=== PATIENT | male | born 1940 | race Caucasian/White ===

== ENCOUNTER 2017-09-15 05:21 | Inpatient (IN) | payer MEDICARE, OTHER ==
[~2017-09-15] VITALS: Ht 172.7 cm; Wt 75.5 kg
[~2017-09-15 05:21] MED LIST: /ATOR40TA PO; ACYC400T PO; AMOX500C PO; ASPI81TA45 PO; AVOD0.5C PO; CALC-190 PO; CALCIUM+VIT D PO; D200CAP3 PO; DOCU10CA PO; ERYT5OPO OU; FISHOIL XX; FLAXOIL4 PO; GLUC500T PO; LEVO500T3 PO; LISI5TAB PO; MG-PTAB PO; MULTTAB50 PO; OMEP20CA3 PO; PENI50TA PO; PENT30IN INH; PLAQUENIL PO; TACROLIMUS PO; VITA10006 PO; VITAD1000T PO; VORI200T5 PO
[2017-09-15] MEDS ORDERED: DOXY-278 PO (05:43)
[2017-09-15] MEDS ORDERED: IMAT100T PO (05:43)
[2017-09-15] MEDS ORDERED: FOSA70TA PO (05:43)
[2017-09-15] MEDS ORDERED: SING10TA32 PO (05:43)
[2017-09-15] MEDS ORDERED: CETI10CH PO (05:43)
[2017-09-15] MEDS ORDERED: METO37.5 PO (05:43)
[2017-09-15] MEDS ORDERED: BACT800T5 PO (05:43)
[2017-09-15] MEDS ORDERED: DIGO0.12 PO (05:43)
[2017-09-15] MEDS ORDERED: ASPIRIN 81 MG CHEW TABLET PO ONE (05:45)
[2017-09-15 05:51] LABS: BASO % 0.2 % (0.0-1.0); EOS % 0.2 % (0.0-3.0); IMMATURE GRANULOCYTE % 0.5 % (0-0); LYMPH # 1.1 10^3/uL (1.5-4.5); LYMPH % 8.7 % (24.0-44.0); MEAN CORPUSCULAR HEMOGLOBIN 36.1 pg (27.0-33.0); MEAN CORPUSCULAR VOLUME 106.1 fl (80.0-96.0); MONO # 0.6 10^3/uL (0.0-0.8); MONO % 4.6 % (0.0-5.0); NEUTROPHILS # 10.6 10^3/uL (1.8-7.7); NEUTROPHILS % 85.8 % (36.0-66.0); PLATELET COUNT, AUTOMATED 209 10^3/uL (150-450); RED CELL DISTRIBUTION WIDTH 13.7 % (11.5-14.5); WHITE BLOOD COUNT 12.3 10^3/uL (4.0-10.0)
[2017-09-15 06:21] LABS: ALBUMIN 3.2 GM/DL (3.2-5.2); ALBUMIN/GLOBULIN RATIO 1.03 (1.00-1.93); BILIRUBIN,DIRECT 0.1 MG/DL (0.0-0.2); BILIRUBIN,TOTAL 0.4 MG/DL (0.2-1.0); CALCIUM LEVEL 8.4 MG/DL (8.8-10.2); CREATININE FOR GFR 1.3 MG/DL (0.70-1.30); GLOMERULAR FILTRATION RATE 57.3 (>42); POTASSIUM SERUM 4.8 MEQ/L (3.5-5.1); TOTAL PROTEIN 6.3 GM/DL (6.4-8.2)
[2017-09-15] MEDS ORDERED: ISOVUE-370 76% 100ML VIAL (Q9967) As Ordered ONE (07:10)
--- NOTE | 2017-09-15 08:10 | REPUSA ---
CLINICAL HISTORY: Dyspnea, exclude PE. TECHNIQUE: Multiple incremental axial, coronal and oblique images are obtained from the thoracic inle t to the upper abdomen. Intravenous contrast material was administered as per pulmonary embolism prot ocol. COMMENTS: Comparison to prior exam performed on 09/14/2014. Small left pleural effusion. Left lower lobe pulmonary consolidation. Prior CABG. 2.5 cm left hypoechoic cystic nodule/cyst. Mildly increased in size. Complete resolution of the patient noted large pericardial effusion. Minimal bilateral multifocal air trapping/hypoventilatory changes of the lungs. Significant decrease in bilateral ground glass densities of the lungs. Unchanged bilateral chronic subdural minimal interstitial pulmonary thickening. Unchanged paraseptal emphysema. Multiple gallstones are noted. Diffusely thickened gallbladder. Unchanged cardiomegaly. There is excellent opacification of pulmonary arterial system without evidence for pulmonary embolism . Aorta is of normal caliber without evidence for dissection or aneurysm. There is no evidence of hilar or mediastinal lymphadenopathy. Images of the upper abdomen demonstrate no evidence of adrenal mass. The bony structures are free of lytic or blastic lesions. Multilevel degenerative changes are seen in volving the visualized thoracolumbar spine. Scattered calcifications are seen involving the aorta and major branches compatible with atherosclero sis. IMPRESSION: No evidence for pulmonary embolism. Increase in the size of the left lower lobe pulmonary consolidation. Interval appearance of a small left pleural effusion. Mild increase in the size of the left thyroid cyst/nodule. Resolution of pericardial effusion. Decreased bilateral patchy groundglass densities of the lungs. Cholelithiasis. The gallbladder was not fully included on the prior exam. Mild thickening of the wall of the gallbladder. Thank you for your kind referral of this patient.
--- NOTE | 2017-09-15 08:40 | REP ---
Portable chest x-ray: Single view. History: Chest pain. Comparison study: September 16, 2014. Findings: There is elevation of the left hemidiaphragm and blunting of the left lateral pleural angle consistent with small left pleural effusion. The patient is status post prior median sternotomy. Remaining lung sethi are clear. No significant bony abnormality is seen. Impression: Probable left pleural effusion. Prior sternotomy. Signed by Guy Camarillo MD 09/15/2017 03:49 P
[2017-09-15] MEDS ORDERED: AZITHROMYCIN INJ 500 MG, VIAL MATE ADAPTER 1 EACH in D5W 250 ML IV ONE (09:00)
[2017-09-15] MEDS ORDERED: CEFTRIAXONE SOD 1 GM in APPROPRIATE DILUENT 1 EA IV ONE (09:00)
[2017-09-15] MEDS ORDERED: ALEN10TA PO (09:37)
[2017-09-15] MEDS ORDERED: ADV500INH INH (09:37)
[2017-09-15] MEDS ORDERED: ATOR1TAB21 PO (09:37)
[2017-09-15] MEDS ORDERED: CETI10TA PO (09:37)
[2017-09-15] MEDS ORDERED: TACROLIMUS PO (09:37)
[2017-09-15] MEDS ORDERED: METO1TAB87 PO (09:37)
[2017-09-15] MEDS ORDERED: FISH1CAP24 PO (09:42)
[2017-09-15] MEDS ORDERED: FOLI1TAB4 PO (09:42)
[2017-09-15] MEDS ORDERED: HYDR200T3 PO (09:42)
[2017-09-15] MEDS ORDERED: CALCTAB68 PO (09:42)
[2017-09-15 09:47] LABS: DIGOXIN LEVEL 1.1 NG/ML (0.5-2.0)
[2017-09-15] MEDS ORDERED: NS 1,000 ML IV SCH (11:00)
--- NOTE | 2017-09-15 11:41 | PHACANCOPD ---
PHARMACY VANCOMYCIN DOSING Pt Demographics Demographics Patient Age:77 , Weight:68.180 , Gender: male Adjusted Body Weight Date: 09/15/17, Adjusted Body Weight: [68.18] Kg Events Past 24 Hours Events Past 24 Hours: NO: Dialysis, Diuretic Therapy, Change in CrCl, Fever, Elevation in WBC, Pending Diagnostics, Pending Procedures, Other Vancomycin Vancomycin indication: pna Vancomycin Target Ranges: 15-20 mcg/ml Vancomycin Load Y/N: Yes Load Dose Date Time Vancomycin Load Dose: 1.5g Date: 09/15/17 Time: 1300 Vancomycin Dose Date: 09/15/17. Current Vancomycin Dose: [1g iv q24h] Intermittent Dosing?: No Labs Labs Item Value Date Time White Blood Count 12.3 10^3/uL H 09/15/17 0541 Creatinine 1.30 MG/DL 09/15/17 0541 Micro Microbiology 09/15/17 Blood Culture, Received Pending 09/15/17 Blood Culture, Received Pending 09/15/17 Influenza Virus Type A Antigen - Final, Complete 09/15/17 Influenza Virus Type B Antigen - Final, Complete Creatinine Clearance Date:09/15/17. Creatinine Clearance: [47.5ml/min]. Pending Labs blood culture Assessment and Plan Maintaining Current Dose?: Yes Reason for dose change: No Dose Change Pharmacist Note Pharmacist Note Date: 09/15/17. Pharmacist note: Pt is a 77 year old man being treated for pneumonia goal trough 15-20mcg/ml. The patient has been treated with vancomycin at [facility] briefly in 2013. To achieve goal a 1.5g loading dose will start 09/15/17 @12. Maintenance therapy will consist of 1g iv q24 hours starting 09/16 @ 12: 00. We will continue to monitor and adjust dose as needed. GIOVANNI BALTAZAR PHARMACY Sep 15, 2017 11:41
--- NOTE | 2017-09-15 11:42 | PHACANCOPD ---
PHARMACY VANCOMYCIN DOSING Pt Demographics Demographics Patient Age:77 , Weight:68.180 , Gender: male Adjusted Body Weight Date: 09/15/17, Adjusted Body Weight: [68.18] Kg Events Past 24 Hours Events Past 24 Hours: YES: Dialysis, Diuretic Therapy, Change in CrCl, Fever, Elevation in WBC, Pending Diagnostics, Pending Procedures, Other Vancomycin Vancomycin indication: pna Vancomycin Target Ranges: 15-20 mcg/ml Vancomycin Load Y/N: Yes Load Dose Date Time Vancomycin Load Dose: 1.5g Date: 09/15/17 Time: 1300 Vancomycin Dose Date: 09/15/17. Current Vancomycin Dose: [1g iv q24h] Intermittent Dosing?: No Labs Micro Microbiology 09/15/17 Blood Culture, Received Pending 09/15/17 Blood Culture, Received Pending 09/15/17 Influenza Virus Type A Antigen - Final, Complete 09/15/17 Influenza Virus Type B Antigen - Final, Complete Creatinine Clearance Date:09/15/17. Creatinine Clearance: [47.5ml/min]. Pending Labs blood culture Assessment and Plan Maintaining Current Dose?: Yes Reason for dose change: No Dose Change Pharmacist Note Pharmacist Note Date: 09/15/17. Pharmacist note: Pt is a 77 year old man being treated for pneumonia goal trough 15-20mcg/ml. The patient has been treated with vancomycin at [facility] briefly in 2013. To achieve goal a 1.5g loading dose will start 09/15/17 @13. Maintenance therapy will consist of 1g iv q24 hours starting 09/16 @ 13: 00. We will continue to monitor and adjust dose as needed. GIOVANNI BALTAZAR PHARMACY Sep 15, 2017 11:42
[2017-09-15] MEDS: PIPERACILLIN/TAZOBACTAM SOD 3.375 GM in APPROPRIATE DILUENT 1 EA IV SCH ×2 (13:50→18:00)
[2017-09-15] MEDS ORDERED: VANCOMYCIN HCL 500 MG in D5W MINI-BAG PLUS 100 ML IV ONE (14:00)
--- NOTE | 2017-09-15 15:04 | HPEPDOC ---
[facility] Medical History & Physical Date of Admission Sep 15, 2017 History and Physical PRIMARY CARE PROVIDER: Dr. Oziel Mistry ATTENDING: Dr. 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 Patient states he started having shortness of breath and a nonproductive cough starting yesterday which progressively worsened overnight. Patient denies any fevers or chills. No sick contacts. No recent travels. Has not been hospitalized in the last 90 days. Patient does have left-sided chest pain that is double nature and worse with exertion, in nonreproducible. Patient states this pain pleuritic in nature. Pain has resolved at this time. Patient denies orthopnea/PND/lower extremity edema/syncopal episodes. In the ED patient was found to have pneumonia and started on azithromycin and Rocephin. PAST MEDICAL HISTORY: As per HPI PAST SURGICAL HISTORY: Appendectomy, CABG, BM Transplant, Adenoids SOCIAL HISTORY: H/o tobacco abuse quit in 1976. Denies alcohol. Lives with . FAMILY HISTORY: Non contributory ALLERGIES: Please see below. REVIEW OF SYSTEMS: HEENT: Denies sore throat/headache CARDIOVASCULAR: Denies chest pain/palpitations RESPIRATORY: + shortness of breath/cough GASTROINTESTINAL: denies nausea/vomiting GENITOURINARY: Denies dysuria/urinary urgency. MUSCULOSKELETAL: Denies myalgias/arthralgias NEUROLOGICAL: Denies any focal weakness HOME MEDICATIONS: Please see below. PHYSICAL EXAMINATION: Vitals: (see below) General: No acute distress, laying comfortably in bed. HEENT: Moist mucous membranes. Neck: No JVD or lymphadenopathy Cardiac: RRR, No murmurs Pulm: Diminished breath sounds and course crackles left base. No wheezing, rhonchi Abd: NT/ND + BS Ext: No edema or cyanosis LABORATORY DATA: See below. IMAGING: CTA Chest 09/15/17 IMPRESSION: No evidence for pulmonary embolism. Increase in the size of the left lower lobe pulmonary consolidation. Interval appearance of a small left pleural effusion. Mild increase in the size of the left thyroid cyst/nodule. Resolution of pericardial effusion. Decreased bilateral patchy groundglass densities of the lungs. Cholelithiasis. The gallbladder was not fully included on the prior exam. Mild thickening of the wall of the gallbladder. MICROBIOLOGY: Please see below. ASSESSMENT/PLAN: 1. Community acquired pneumonia- given that the patient's immunosuppressed, we will start the patient on broad-spectrum antibiotics with vancomycin and Zosyn, pending cultures. Patient is not hypoxic. Leukocytosis of 23. Afebrile. Blood/ sputum cultures. 2. History of CAD status post bypass 3 continue home meds 3. Pleuritic chest pain- CTA negative for PE. Given the patient's history of pericardial effusion, we will obtain echocardiogram. Trend cardiac enzymes. 4. History ammsi-cadshb-kkmx disease. 5. History of myelodysplastic syndrome on immunosuppressants status post bone marrow transplant 2011 6. Diabetes mellitus- hold metformin. Sliding scale insulin. DVT prophylaxis SCDs I have called and discussed the case with the patient's transplants seen (Dr. Bravo's office), spoke with the PA, who were agreeable to the current antibiotic regimen. These call their office with any questions or concerns and [phone]. Vital Signs Vital Signs Date Time Temp Pulse Resp B/P (MAP) Pulse Ox O2 Delivery O2 Flow Rate FiO2 09/15/17 13:17 80 120/58 (78) 96 09/15/17 11:02 98.9 16 09/15/17 05:22 Room Air Laboratory Data Labs 24H Laboratory Tests 2 09/15/17 05:40: 09/15/17 05:41: Immature Granulocyte % (Auto) 0.5H, White Blood Count 12.3H, Red Blood Count 2.94L, Hemoglobin 10.6L, Hematocrit 31.2L, Mean Corpuscular Volume 106.1H, Mean Corpuscular Hemoglobin 36.1H, Mean Corpuscular Hemoglobin Concent 34.0, Red Cell Distribution Width 13.7, Platelet Count 209, Neutrophils (%) (Auto) 85.8H, Lymphocytes (%) (Auto) 8.7L, Monocytes (%) (Auto) 4.6, Eosinophils (%) (Auto) 0.2, Basophils (%) (Auto) 0.2, Neutrophils # (Auto) 10.6H, Lymphocytes # (Auto) 1.1L, Monocytes # (Auto) 0.6, Eosinophils # (Auto) 0.0, Basophils # (Auto) 0.0, Immature Granulocyte # (Auto) 0.1H, Nucleated Red Blood Cells % (auto) 0.0, Anion Gap 10, Glomerular Filtration Rate 57.3, Calcium Level 8.4L, Aspartate Amino Transf (AST/SGOT) 26, Alanine Aminotransferase (ALT/SGPT) 27, Alkaline Phosphatase 66, Total Bilirubin 0.4, Direct Bilirubin 0.1, Total Creatine Kinase 129, Creatine Kinase MB 1.0, Creatine Kinase MB Relative Index 0.77, Troponin I 0.05, DL-Qaz-I-Type Natriuretic Peptide 4125H, Total Protein 6.3L, Albumin 3.2, Albumin/Globulin Ratio 1.03, Digoxin Level 1.1 09/15/17 07:39: Urine Appearance HAZY, Urine Color YELLOW, Urine pH 5.0, Urine Specific [place] 1.024, Urine Protein 3+H, Urine Glucose (UA) 3+H, Urine Ketones TRACEH, Urine Urobilinogen 0.2, Urine Bilirubin NEGATIVE, Urine Leukocyte Esterase NEGATIVE, Urine Blood NEGATIVE, Urine Nitrite NEGATIVE, Urine WBC (Auto) 2, Urine RBC ( Auto) 3, Urine Hyaline Casts (Auto) 0, Urine Bacteria (Auto) NEGATIVE, Urine Squamous Epithelial Cells 0, Urine Mucus (Auto) SMALL, Urine Sperm (Auto) 09/15/17 08:44: Lactic Acid Level 1.3 CBC/BMP Laboratory Tests 09/15/17 05:41 Red Blood Count 2.94 L, Mean Corpuscular Volume 106.1 H, Mean Corpuscular Hemoglobin 36.1 H, Mean Corpuscular Hemoglobin Concent 34.0, Red Cell Distribution Width 13.7, Neutrophils (%) (Auto) 85.8 H, Lymphocytes (%) (Auto) 8.7 L, Monocytes (%) (Auto) 4.6, Eosinophils (%) (Auto) 0.2, Basophils (%) (Auto ) 0.2, Neutrophils # (Auto) 10.6 H, Lymphocytes # (Auto) 1.1 L, Monocytes # ( Auto) 0.6, Eosinophils # (Auto) 0.0, Basophils # (Auto) 0.0 Microbiology Microbiology 09/15/17 Blood Culture, Received Pending 09/15/17 Blood Culture, Received Pending 09/15/17 Influenza Virus Type A Antigen - Final, Complete 09/15/17 Influenza Virus Type B Antigen - Final, Complete Home Medications Scheduled (mg-Plus Protein 133 mg) 1 Tab Tab, 1 TAB PO TID (Imatinib Mesylate) 100 Mg Tab, 200 MG PO DAILY LUNCHTIME (Digoxin) 125 Mcg Tab, 125 MCG PO DAILY (Fish Oil 500 mg) 1 Cap Cap, 2 CAP PO BID Acyclovir (Acyclovir) 400 Mg Tab, 400 MG PO BID Alendronate Sodium (Alendronate Sodium) 10 Mg Tab, 10 MG PO DAILY Amoxicillin (Amoxicillin) 500 Mg Cap, 2,000 MG PO ASDIRECTED Aspirin (Aspirin EC Lo-Dose) 81 Mg Tab, 81 MG PO QHS Atorvastatin Calcium (Atorvastatin Calcium) 20 Mg Tab, 20 MG PO QHS Calcium/Vitamin D (Calcium 600 + D 600-400 mg-Unit) 1 Tab Tab, 1 TAB PO BID Cetirizine HCl (Cetirizine HCl) 10 Mg Tab, 10 MG PO QHS Cholecalciferol (D2000 Ultra Strength) 2,000 Unit Cap, 6,000 UNIT PO DAILY Docusate Sodium (Colace) 100 Mg Cap, 100 MG PO BID Doxycycline Hyclate (Doxycycline) 100 Mg Cap, 100 MG PO DAILY LUNCHTIME Dutasteride (Avodart) 0.5 Mg Cap, 0.5 MG PO QHS Folic Acid (Folic Acid) 1 Mg Tab, 1 MG PO DAILY Hydroxychloroquine Sulfate (Hydroxychloroquine Sulfat) 200 Mg Tab, 200 MG PO BID Metformin Hydrochloride (Glucophage) 500 Mg Tab, 500 MG PO QHS HOLD DUE TO RECENT USE OF IV CONTRAST Metoprolol Tartrate (Metoprolol Tartrate) 25 Mg Tab, 12.5 MG PO BID Montelukast Sodium (Singulair) 10 Mg Tab, 10 MG PO QPM Omeprazole (Omeprazole) 20 Mg Cap, 20 MG PO DAILY Salmeterol/Fluticasone (Advair Diskus 500-50 Mcg/Dose) 28 Puff/Inhaler Aerp, 1 PUFF INH BID Trimethoprim/Sulfamethoxazole (Bactrim Ds 800-160 mg) 1 Tab Tab, 1 TAB PO 3XW FRIDAY,FRIDAY,FRIDAY Voriconazole (Voriconazole) 200 Mg Tab, 200 MG PO BID [Tacrolimus Oral Susp] ML, 0.8 MG PO BID 0900,2100- PT BRINGING IN MEDICATION Allergies Coded Allergies: No Known Drug Allergy (Verified Allergy, Unknown, 01/03/13) Lidocaine (Verified Adverse Reaction, Severe, CONVULSIONS FROM ALL "CALLIE ", 01/03/13) MOUNA SIMMONS MD Sep 15, 2017 15:04
[2017-09-15 16:00] VITALS: BP 115/56
[2017-09-15] MEDS: VANCOMYCIN HCL 1,000 MG, VIAL MATE ADAPTER 1 EACH in D5W 250 ML IV SCH (16:30)
[2017-09-15] MEDS: VITAMIN D 1,000 INTERNATIONAL UNITS TABLET PO SCH (16:30)
[2017-09-15] MEDS: OMEPRAZOLE 20 MG CAP PO SCH (16:31)
[2017-09-15] MEDS: DIGOXIN 0.125 MG TAB PO SCH (16:31)
[2017-09-15] MEDS: FOLIC ACID 1 MG TAB PO SCH (16:31)
[2017-09-15 20:00] VITALS: BP 110/57
[2017-09-15] MEDS: ADVAIR HFA 230/21MCG INHALER INH SCH (20:52)
[2017-09-15] MEDS ORDERED: VANCOMYCIN HCL 750 MG, VIAL MATE ADAPTER 1 EACH in D5W 250 ML IV SCH (21:00)
[2017-09-15] MEDS ORDERED: ASPIRIN 81 MG ENTERIC TAB PO SCH (21:00)
[2017-09-15] MEDS: ACYCLOVIR 200 MG CAPSULE PO SCH (21:55)
[2017-09-15] MEDS: DOCUSATE SODIUM 100 MG CAP PO SCH (21:56)
[2017-09-15] MEDS: HYDROXYCHLOROQUINE 200 MG TAB PO SCH (21:56)
[2017-09-15] MEDS: VORICONAZOLE 200MG TABLET (VFEND) PO SCH (21:56)
[2017-09-15] MEDS: CETIRIZINE (ZyrTEC) 10 MG TAB PO SCH (21:56)
[2017-09-15] MEDS: MONTELUKAST 10 MG TAB PO SCH (21:56)
[2017-09-15] MEDS: ATORVASTATIN 20 MG TAB PO SCH (21:56)
[2017-09-15] MEDS: DUTASTERIDE 0.5 MG CAP (AVODART) PO SCH (21:56)
[2017-09-15] MEDS: METOPROLOL TART 12.5 MG PER 1/2 TAB PO SCH (21:59)
[2017-09-15] MEDS: TACROLIMUS PO SCH (23:37)
[2017-09-16] MEDS: PIPERACILLIN/TAZOBACTAM SOD 3.375 GM in APPROPRIATE DILUENT 1 EA IV SCH ×5 (02:41→23:49)
[2017-09-16 04:00] VITALS: BP 109/53
[2017-09-16 05:47] LABS: BASO % 0.2 % (0.0-1.0); EOS # 0.1 10^3/uL (0.0-0.50); EOS % 0.5 % (0.0-3.0); IMMATURE GRANULOCYTE % 0.7 % (0-0); LYMPH # 1.3 10^3/uL (1.5-4.5); LYMPH % 12.6 % (24.0-44.0); MEAN CORPUSCULAR HEMOGLOBIN 35.4 pg (27.0-33.0); MEAN CORPUSCULAR HGB CONC 34.2 g/dl (32.0-36.5); MEAN CORPUSCULAR VOLUME 103.6 fl (80.0-96.0); MONO # 0.7 10^3/uL (0.0-0.8); NEUTROPHILS # 8.4 10^3/uL (1.8-7.7); PLATELET COUNT, AUTOMATED 181 10^3/uL (150-450); RED CELL DISTRIBUTION WIDTH 13.9 % (11.5-14.5); WHITE BLOOD COUNT 10.6 10^3/uL (4.0-10.0)
[2017-09-16 05:57] LABS: ANION GAP 8 MEQ/L (8-16); BLOOD UREA NITROGEN 39 MG/DL (7-18); CALCIUM LEVEL 8.2 MG/DL (8.8-10.2); CARBON DIOXIDE LEVEL 24 MEQ/L (21-32); CHLORIDE LEVEL 104 MEQ/L (98-107); GLOMERULAR FILTRATION RATE > 60.0 (>42); GLUCOSE, FASTING 105 MG/DL (83-110); MAGNESIUM LEVEL 1.6 MG/DL (1.8-2.4); POTASSIUM SERUM 4.1 MEQ/L (3.5-5.1); SODIUM LEVEL 136 MEQ/L (136-145)
[2017-09-16 07:30] VITALS: BP 103/62
[2017-09-16] MEDS ORDERED: MAG SULF 1GM/100ML (MAG RUN) 1 GM in APPROPRIATE DILUENT 1 EA IV ONE (07:45)
--- NOTE | 2017-09-16 08:33 | ECGEPIP ---
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
--- NOTE | 2017-09-16 08:35 | ECGEPIP ---
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
[2017-09-16] MEDS: ACYCLOVIR 200 MG CAPSULE PO SCH ×2 (08:48→21:43)
[2017-09-16] MEDS: METOPROLOL TART 12.5 MG PER 1/2 TAB PO SCH ×2 (08:48→21:46)
[2017-09-16] MEDS: VITAMIN D 1,000 INTERNATIONAL UNITS TABLET PO SCH (08:48)
[2017-09-16] MEDS: VORICONAZOLE 200MG TABLET (VFEND) PO SCH ×2 (08:49→21:46)
[2017-09-16] MEDS: DIGOXIN 0.125 MG TAB PO SCH (08:49)
[2017-09-16] MEDS: FOLIC ACID 1 MG TAB PO SCH (08:49)
[2017-09-16] MEDS: DOCUSATE SODIUM 100 MG CAP PO SCH ×2 (08:50→21:43)
[2017-09-16] MEDS: TACROLIMUS PO SCH ×2 (08:50→21:48)
[2017-09-16] MEDS: OMEPRAZOLE 20 MG CAP PO SCH (08:50)
[2017-09-16] MEDS: HYDROXYCHLOROQUINE 200 MG TAB PO SCH ×2 (08:52→21:43)
[2017-09-16] MEDS: ADVAIR HFA 230/21MCG INHALER INH SCH ×2 (08:57→20:32)
--- NOTE | 2017-09-16 09:52 | ECHO ---
DATE OF PROCEDURE: 09/15/2017 AGE: 77 GENDER: Male REFERRING PHYSICIAN: Dr. Simmons. HEIGHT: 68 inches. WEIGHT: 149 pounds. BODY SURFACE AREA: 1.81 m2. INPATIENT: PCU Room 3224. INDICATION: Chest pain (other). MEASUREMENTS: 2D MEASUREMENTS: RV - 3.6 cm LV- 4.9 cm Septum - 1.3 cm Posterior wall - 1.3 cm Aortic root - 3.8 cm LA - 4.5 cm LVEF - 70% DOPPLER MEASUREMENTS: AV - 1.1 m/s LVOT - 0.77 m/s LVOT diameter - 2.1 cm MV-E: 75 A: 77 EA ratio 1.0 Early mitral deacceleration time - 236 ms E-prime - 5.4 A-prime - 8.6 E/E prime ratio - 14 PV - 0.8 m/s Pulmonary artery acceleration time - 99 ms RVSP - 34 mmHg IVC - 1.8 cm COMMENT: Normal sinus rhythm without interventricular conduction disturbance. Mildly dilated left atrium but normal left ventricular size. Right heart chamber sizes were also normal. LV wall thickness was mildly increased symmetrically. On real-time imaging from the parasternal and apical projections, wall motion was symmetrical and hyperkinetic. Slightly thickened mitral annulus but normal leaflet thickness and excursion with no posterior systolic buckling. Three equal size aortic cusps with slight asymmetrical thickening of the noncoronary cusp, but adequate cusp separation. Aortic root was slightly dilated. No apparent intracardiac mass or pericardial effusion. Color flow Doppler study taken from the parasternal and apical projection showed mild tricuspid and no apparent mitral or aortic insufficiency. Guided continuous wave Doppler of his aortic valve showed a normal peak systolic velocity against LV outflow tract obstruction. Pulsed and continuous wave Doppler of his LV inflow tract taken from the apical four-chamber projection showed normal diastolic filling velocities against mitral stenosis. The filling pattern was normal. However, his early mitral deceleration time was prolonged and tissue Doppler of his mitral annulus also suggested a degree of impaired LV diastolic function. Current estimated mean left atrial pressure was upper limits of normal. Pulsed and continuous wave Doppler of his pulmonary trunk showed a normal peak systolic velocity against RV outflow tract obstruction. His pulmonary artery acceleration time was abbreviated consistent with a mildly elevated pulmonary vascular resistance. Guided continuous wave Doppler of his tricuspid valve allowed our estimation of his right ventricular systolic pressure (upper limits of normal to mildly increased). His inferior vena cava was of normal size with normal respiratory collapse against an elevated central venous pressure. CONCLUSIONS: Mild concentric left ventricle hypertrophy with hyperkinetic wall motion. Mildly dilated left atrium with Doppler evidence of impaired LV diastolic relaxation but current mean left atrial pressure only slightly elevated. Normal right heart chamber sizes and motion with borderline elevated estimated pulmonary arterial pressure. Normal IVC size and collapse against an elevated central venous pressure. Subtle degenerative changes of the mitral and aortic valvular apparatus with no functional valvular abnormality.
[2017-09-16 12:30] VITALS: BP 123/65
[2017-09-16] MEDS: VANCOMYCIN HCL 1,000 MG, VIAL MATE ADAPTER 1 EACH in D5W 250 ML IV SCH (12:47)
[2017-09-16 16:00] VITALS: BP 113/50
[2017-09-16] MEDS ORDERED: IPRATROPIUM 0.5MG/ALBUTEROL 2.5MG INH SOL UD 3ML (DUONEB)(J7620) NEB PRN (16:15)
--- NOTE | 2017-09-16 16:20 | IPNPDOC ---
Text Note Date of Service The patient was seen on 09/16/17. NOTE Subjective: Patient is a 77 year old male with a PMHx of MDS s/p BM transplant ( 2011), s/p GVH disease (2013), CAD s/p CABG x3 (2013), DM2, Pericardial effusion (2013), who presented to the ER with cough and SOB. Was found to have a pneumonia and admitted to the hospitalist service. Patient was seen and examined at the bedside. He notes that his breathing is doing better. He notes a mild cough. Reports chest pain when he coughs. Denies N &V and diarrhea. Objective: Vitals (See below) General: Lying in bed, no acute distress, comfortable, AAOx3 HEENT: NC, AT CVS: RRR, +S1S2 Lungs: Fair air entry b/l, -w/r/r Abdomen: Soft, ND, NT Extremities: - Edema, - Calf tenderness Assessment and plan: Dyspnea - likely 2/2 Community acquired pneumonia - Presented with SOB and productive cough - Immunosuppression; re: chemotherapy - Blood cultures 09/15: Strep pneumoniae; REPEAT Blood cultures 09/16: Pending - WBC count improving; No lactic acidosis - CTA chest 09/15: increase in the size of the left lower lobe pulmonary consolidation - c/w Vancomycin and Zosyn (Day #2) Chest pain - likely 2/2 pleuritic nature - CTA chest 09/15: negative for PE - Troponin x3 negative MDS s/p BM transplant (2011) - s/p GVH disease (2013) CAD s/p CABG x3 (2013) - c/w ASA, Atorvastatin DLP - c/w Atorvastatin DM2 - c/w ISS HTN - c/w Metoprolol Pericardial effusion (2013) - resolution of effusion on CTA 09/15/2017 COPD - no evidence of exacerbation - c/w Singulair and Advair - Will start DuoNeb PRN BPH - c/w Dutasteride GERD - c/w Omeprazole DVT prophylaxis - Will start Heparin VS,Fishbone, I+O VS, Fishbone, I+O Laboratory Tests 09/16/17 05:20 Red Blood Count 2.74 L, Mean Corpuscular Volume 103.6 H, Mean Corpuscular Hemoglobin 35.4 H, Mean Corpuscular Hemoglobin Concent 34.2, Red Cell Distribution Width 13.9, Neutrophils (%) (Auto) 79.0 H, Lymphocytes (%) (Auto) 12.6 L, Monocytes (%) (Auto) 7.0 H, Eosinophils (%) (Auto) 0.5, Basophils (%) ( Auto) 0.2, Neutrophils # (Auto) 8.4 H, Lymphocytes # (Auto) 1.3 L, Monocytes # ( Auto) 0.7, Eosinophils # (Auto) 0.1, Basophils # (Auto) 0.0, Calcium Level 8.2 L Vital Signs Date Time Temp Pulse Resp B/P (MAP) Pulse Ox O2 Delivery O2 Flow Rate FiO2 09/16/17 12:30 99.9 82 16 123/65 (84) 95 Room Air I&O- Last 24 Hours up to 6 AM 09/17/17 06:00 Intake Total 760 ml Output Total 150 ml Balance 610 ml VICENTE LOCK MD Sep 16, 2017 16:20
[2017-09-16] MEDS: HEPARIN SOD (PORCINE) 5000 UNITS/ML VIAL SQ SCH ×2 (17:57→21:42)
[2017-09-16 20:00] VITALS: BP 127/59
[2017-09-16] MEDS ORDERED: ASPIRIN 81 MG ENTERIC TAB PO SCH (21:00)
[2017-09-16] MEDS: MONTELUKAST 10 MG TAB PO SCH (21:43)
[2017-09-16] MEDS: ATORVASTATIN 20 MG TAB PO SCH (21:43)
[2017-09-16] MEDS: DUTASTERIDE 0.5 MG CAP (AVODART) PO SCH (21:43)
[2017-09-16] MEDS: CETIRIZINE (ZyrTEC) 10 MG TAB PO SCH (21:43)
[2017-09-16 23:59] VITALS: BP 138/67
[2017-09-17 04:00] VITALS: BP 139/68
[2017-09-17] MEDS: PIPERACILLIN/TAZOBACTAM SOD 3.375 GM in APPROPRIATE DILUENT 1 EA IV SCH (05:12)
[2017-09-17] MEDS: HEPARIN SOD (PORCINE) 5000 UNITS/ML VIAL SQ SCH (05:12)
[2017-09-17 06:00] LABS: BASO % 0.2 % (0.0-1.0); EOS # 0.1 10^3/uL (0.0-0.50); EOS % 1.2 % (0.0-3.0); LYMPH # 0.9 10^3/uL (1.5-4.5); MEAN CORPUSCULAR HEMOGLOBIN 35.3 pg (27.0-33.0); MEAN CORPUSCULAR HGB CONC 34.9 g/dl (32.0-36.5); MEAN CORPUSCULAR VOLUME 101.2 fl (80.0-96.0); MONO # 0.8 10^3/uL (0.0-0.8); NEUTROPHILS # 6.5 10^3/uL (1.8-7.7); NEUTROPHILS % 77.6 % (36.0-66.0); PLATELET COUNT, AUTOMATED 180 10^3/uL (150-450); RED CELL DISTRIBUTION WIDTH 13.9 % (11.5-14.5); WHITE BLOOD COUNT 8.3 10^3/uL (4.0-10.0)
[2017-09-17 06:23] LABS: ANION GAP 9 MEQ/L (8-16); BLOOD UREA NITROGEN 34 MG/DL (7-18); CALCIUM LEVEL 8.1 MG/DL (8.8-10.2); CARBON DIOXIDE LEVEL 23 MEQ/L (21-32); CHLORIDE LEVEL 105 MEQ/L (98-107); CREATININE FOR GFR 1.23 MG/DL (0.70-1.30); GLOMERULAR FILTRATION RATE > 60.0 (>42); GLUCOSE, FASTING 178 MG/DL (83-110); MAGNESIUM LEVEL 2.4 MG/DL (1.8-2.4); POTASSIUM SERUM 3.9 MEQ/L (3.5-5.1); SODIUM LEVEL 137 MEQ/L (136-145)
[2017-09-17] MEDS: ADVAIR HFA 230/21MCG INHALER INH SCH (07:19)
[2017-09-17 08:00] VITALS: BP 135/70
[2017-09-17 08:53] VITALS: BP 135/70
[2017-09-17] MEDS: DOCUSATE SODIUM 100 MG CAP PO SCH (08:53)
[2017-09-17] MEDS: ACYCLOVIR 200 MG CAPSULE PO SCH (08:53)
[2017-09-17] MEDS: OMEPRAZOLE 20 MG CAP PO SCH (08:53)
[2017-09-17] MEDS: FOLIC ACID 1 MG TAB PO SCH (08:53)
[2017-09-17] MEDS: VORICONAZOLE 200MG TABLET (VFEND) PO SCH (08:53)
[2017-09-17] MEDS: VITAMIN D 1,000 INTERNATIONAL UNITS TABLET PO SCH (08:53)
[2017-09-17] MEDS: METOPROLOL TART 12.5 MG PER 1/2 TAB PO SCH (08:53)
[2017-09-17] MEDS: DIGOXIN 0.125 MG TAB PO SCH (08:54)
[2017-09-17] MEDS: HYDROXYCHLOROQUINE 200 MG TAB PO SCH (08:54)
[2017-09-17] MEDS: TACROLIMUS PO SCH (08:54)
[2017-09-17] MEDS ORDERED: CEFDINIR 300 MG CAP (OMNICEF) PO SCH (09:00)
[2017-09-17] MEDS ORDERED: CEFD300CAP PO (10:29)
--- NOTE | 2017-09-17 20:10 | DSES ---
DATE OF ADMISSION: 09/16/2017 DATE OF DISCHARGE: 09/17/2017 ATTENDING PHYSICIAN: Dr. Ravin Lacy, Dr. Gene Simmons PRIMARY CARE PROVIDER: Dr. Oziel Mistry REFERRING PHYSICIAN: None. CONSULTING PHYSICIAN: None. CONDITION ON DISCHARGE: Stable. FINAL DIAGNOSIS: Dyspnea, likely secondary to community-acquired pneumonia with positive blood cultures. PROCEDURES: None. 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 HOSPITAL COURSE: 1. Dyspnea, likely secondary to community-acquired pneumonia. He presented with shortness of breath and productive cough. He has immunosuppression because of chemotherapy. Blood cultures on 09/15/2017 were positive for Streptococcus pneumoniae. Repeat blood cultures on 09/16/2017 have been negative after 24 hours. The patient's white blood cell count has been improving, along with lactic acidosis. CT of the chest on 09/15/2017 revealed increasing size of the left lower pulmonary consolidation. He has been put on vancomycin and Zosyn. Today is day number three. He has been switched over to cefdinir based on susceptibilities of his blood cultures. 2. Chest pain, likely secondary to pleuritic nature. CT chest done 09/15/2017 was negative for pulmonary embolism (PE). Troponin times three has been negative. 3. 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 4. Coronary artery disease, status post coronary artery bypass graft (CABG) times three in 2013. Continue with aspirin and atorvastatin. 5. Dyslipidemia. Continue with atorvastatin. 6. Diabetes mellitus, type 2. Continue with insulin sliding scale. 7. Hypertension. Continue with metoprolol. 8. Pericardial effusion in 2013. Resolution of effusion on CT angiogram done during this hospitalization. 9. Chronic obstructive pulmonary disease (COPD). No evidence of exacerbation. Continue with Singulair, Advair, and he has been continued with DuoNeb as needed while inpatient. 10. Benign prostatic hypertrophy (BPH). Continue with dutasteride. 11. Gastroesophageal reflux disease (GERD). Continue with omeprazole. 12. Deep vein thrombosis (DVT) prophylaxis. Continue with heparin. DISCHARGE MEDICATIONS: The patient is being discharged home with the following medication list: - cefdinir 300 mg by mouth twice a day for the remainder of the antibiotic course - acyclovir 400 mg by mouth twice a day - alendronate 10 mg by mouth daily - aspirin 81 mg by mouth at bedtime - atorvastatin 20 mg by mouth at bedtime - calcium with vitamin D one tablet by mouth twice a day - cetirizine 10 mg by mouth at bedtime - colecalciferol 6000 units by mouth daily - digoxin 125 mcg by mouth daily - docusate sodium 100 mg by mouth twice a day - doxycycline 100 mg by mouth daily - dutasteride 0.5 mg by mouth at bedtime - fish oil two capsules by mouth twice a day - folic acid 1 mg by mouth daily - hydroxychloroquine 200 mg by mouth twice a day - Imatinib 200 mg by mouth daily - metformin 500 mg by mouth at bedtime - metoprolol tartrate 12.5 mg by mouth twice a day - magnesium plus protein one tablet by mouth three times a day - montelukast 10 mg by mouth every evening - omeprazole 20 mg by mouth daily - Advair Diskus 500/50 mcg one puff inhaled twice a day - Bactrim one tablet by mouth three times a week - cortisol 200 mg by mouth twice a day - 0.8 mg by mouth twice a day Stopped medications include amoxicillin 2000 mg by mouth as directed. DISCHARGE INSTRUCTIONS: The patient has been advised to followup with his primary care provider, Dr. Oziel Mistry, as well as his bone marrow transplant physician within the next seven days. He has been advised to remain compliant with treatment plan and medications and return to the emergency room if he experiences any problems. TIME SPENT ON DISCHARGE: Greater than 35 minutes.
== END 2017-09-17 12:50 | disposition home or self-care (01) | DRG 194 ==
LOC: M ED 05:21 → M ED INP 12:52 → M PCU 15:50 → OBSVTOIN 09-16 10:23
PROVIDERS: ADMIT Internal Medicine; ATTEND Internal Medicine
DX: J18.9 Pneumonia, unspecified organism (principal); D84.9 Immunodeficiency, unspecified; Z94.81 Bone marrow transplant status; I25.10 Atherosclerotic heart disease of native coronary artery without angina pectoris; K21.9 Gastro-esophageal reflux disease without esophagitis; J44.9 Chronic obstructive pulmonary disease, unspecified; N40.0 Benign prostatic hyperplasia without lower urinary tract symptoms; E11.9 Type 2 diabetes mellitus without complications; I10 Essential (primary) hypertension; E78.5 Hyperlipidemia, unspecified; Z79.84 Long term (current) use of oral hypoglycemic drugs; Z79.899 Other long term (current) drug therapy; Z95.5 Presence of coronary angioplasty implant and graft; Z87.891 Personal history of nicotine dependence; Z88.8 Allergy status to other drugs, medicaments and biological substances; Z92.21 Personal history of antineoplastic chemotherapy; Z79.82 Long term (current) use of aspirin

== ENCOUNTER → 2017-12-24 | Outpatient (CLI) | payer MEDICARE, OTHER ==
[~2017-12-24] MED LIST changes: -/ATOR40TA PO; -ACYC400T PO; -AMOX500C PO; -ASPI81TA45 PO; -AVOD0.5C PO; -CALC-190 PO; -CALCIUM+VIT D PO; -D200CAP3 PO; -DOCU10CA PO; -ERYT5OPO OU; -FISHOIL XX; -FLAXOIL4 PO; -GLUC500T PO; +ISOVUE-370 76% 100ML VIAL (Q9967) As Ordered; -LEVO500T3 PO; -LISI5TAB PO; -MG-PTAB PO; -MULTTAB50 PO; -OMEP20CA3 PO; -PENI50TA PO; -PENT30IN INH; -PLAQUENIL PO; -TACROLIMUS PO; -VITA10006 PO; -VITAD1000T PO; -VORI200T5 PO
[2017-12-24 13:22] LABS: CREATININE FOR GFR 1.14 MG/DL (0.70-1.30); GLOMERULAR FILTRATION RATE > 60.0 (>42)
[2017-12-24 13:22] LABS: BLOOD UREA NITROGEN 32 MG/DL (7-18)
== END ==
LOC: M RAD 12:51
DX: E04.1 Nontoxic single thyroid nodule (principal)
CPT/HCPCS: Q9967

== ENCOUNTER → 2017-12-26 | Outpatient (REF) | payer MEDICARE, OTHER | LOC: M LAB REF 15:48 | DX: C44.222 Squamous cell carcinoma of skin of right ear and external auricular canal (principal) | CPT/HCPCS: 88305 ==

== ENCOUNTER 2018-01-12 08:02 | Day surgery (SDC) | payer MEDICARE, OTHER ==
[2018-01-12] MEDS: LR 1,000 ML IV (08:45)
[2018-01-12 08:55] LABS: BEDSIDE GLUCOSE 164 MG/DL (83-110)
[2018-01-12] MEDS: LIDOCAINE W/EPINEPHRINE 1% 20ML VIAL As Ordered (09:17)
[2018-01-12] MEDS: BUPIVACAINE/EPIN 0.5% 30 ML VIAL As Ordered (09:58)
[2018-01-12] MEDS: BUPIVACAINE HCL 0.25% 30 ML VIAL As Ordered ×2 (11:17→12:40)
[2018-01-12] MEDS ORDERED: fentaNYL 250 MCG/5 ML INJECTION (J3010) As Ordered (12:25)
[2018-01-12] MEDS ORDERED: ONDANSETRON 4MG/2ML VIAL (J2405) As Ordered (12:25)
[2018-01-12] MEDS ORDERED: MIDAZOLAM INJ 2 MG/2 ML VIAL (J2250) As Ordered (12:29)
[2018-01-12] MEDS: BACITRACIN OINT 30GM As Ordered (12:40)
[2018-01-12] MEDS ORDERED: PERCOCET 5MG/325MG TAB PO (13:15)
[2018-01-12] MEDS ORDERED: ONDANSETRON 4MG/2ML VIAL (J2405) IV (13:15)
[2018-01-12] MEDS ORDERED: fentaNYL 100 MCG/2 ML INJECTION (J3010) IV (13:15)
[2018-01-12] MEDS ORDERED: LR 1,000 ML IV (13:15)
== END 2018-01-12 13:50 | disposition home or self-care (01) ==
LOC: M SDC 08:02
DX: C44.42 Squamous cell carcinoma of skin of scalp and neck (principal); C44.222 Squamous cell carcinoma of skin of right ear and external auricular canal; I25.2 Old myocardial infarction; I25.10 Atherosclerotic heart disease of native coronary artery without angina pectoris; E11.9 Type 2 diabetes mellitus without complications; K21.9 Gastro-esophageal reflux disease without esophagitis; C92.00 Acute myeloblastic leukemia, not having achieved remission; E78.5 Hyperlipidemia, unspecified; Z92.21 Personal history of antineoplastic chemotherapy; D46.9 Myelodysplastic syndrome, unspecified; Z87.891 Personal history of nicotine dependence; Z79.51 Long term (current) use of inhaled steroids; Z79.899 Other long term (current) drug therapy; Z79.82 Long term (current) use of aspirin
CPT/HCPCS: 11623

== ENCOUNTER 2018-03-22 09:31 | Inpatient (IN) | payer MEDICARE, OTHER ==
[2018-03-22 10:43] LABS: BASO % 0.5 % (0.0-1.0); EOS # 0.1 10^3/uL (0.0-0.50); EOS % 1.4 % (0.0-3.0); HEMATOCRIT 30.3 % (42.0-52.0); HEMOGLOBIN 10.1 g/dl (13.5-17.5); IMMATURE GRANULOCYTE % 0.6 % (0-3.0); LYMPH # 1.6 10^3/uL (1.5-4.5); LYMPH % 23.9 % (24.0-44.0); MEAN CORPUSCULAR HEMOGLOBIN 34.4 pg (27.0-33.0); MEAN CORPUSCULAR HGB CONC 33.3 g/dl (32.0-36.5); MEAN CORPUSCULAR VOLUME 103.1 fl (80.0-96.0); MONO # 0.7 10^3/uL (0.0-0.8); MONO % 10.8 % (0.0-5.0); NEUTROPHILS # 4.1 10^3/uL (1.8-7.7); NEUTROPHILS % 62.8 % (36.0-66.0); PLATELET COUNT, AUTOMATED 196 10^3/uL (150-450); RED BLOOD COUNT 2.94 10^6/uL (4.30-6.10); RED CELL DISTRIBUTION WIDTH 13.3 % (11.5-14.5); WHITE BLOOD COUNT 6.6 10^3/uL (4.0-10.0)
[2018-03-22 10:45] LABS: VENOUS BASE EXCESS -0.6 (-2.0-2.0); VENOUS HCO3 23.9 MEQ/L (23.0-27.0); VENOUS O2 SATURATION 94.7 % (60.0-80.0); VENOUS PARTIAL PRESSURE CO2 38.8 mmHg (38.0-50.0); VENOUS PARTIAL PRESSURE O2 73.2 mmHg (30.0-50.0); VENOUS PH 7.407 UNITS (7.330-7.430); VENOUS STANDARD HCO3 23.9 MEQ/L; VENOUS TOTAL CO2 25.1 MEQ/L (24.0-28.0)
[2018-03-22 10:58] LABS: AMMONIA 14 uMOL/L (<32)
[2018-03-22 11:02] LABS: LACTIC ACID SEPSIS PROTOCOL 1.5 MMOL/L (0.4-2.0)
[2018-03-22 11:04] LABS: ACETAMINOPHEN LEVEL < 2.0 UG/ML (10.0-30.0); ALBUMIN 3.1 GM/DL (3.2-5.2); ALBUMIN/GLOBULIN RATIO 1.15 (1.00-1.93); ALKALINE PHOSPHATASE 69 U/L (45-117); ALT/SGPT 38 U/L (12-78); ANION GAP 8 MEQ/L (8-16); AST/SGOT 36 U/L (7-37); BILIRUBIN,DIRECT 0.1 MG/DL (0.0-0.2); BILIRUBIN,TOTAL 0.5 MG/DL (0.2-1.0); BLOOD UREA NITROGEN 25 MG/DL (7-18); CALCIUM LEVEL 8.3 MG/DL (8.8-10.2); CARBON DIOXIDE LEVEL 25 MEQ/L (21-32); CHLORIDE LEVEL 107 MEQ/L (98-107); CPK CREATINE PHOSPHOKINASE 204 U/L (39-308); CREATININE FOR GFR 1.07 MG/DL (0.70-1.30); ETHYL ALCOHOL (ETHANOL) < 0.003 % (0.000-0.010); GLOMERULAR FILTRATION RATE > 60.0 (>42); GLUCOSE, FASTING 155 MG/DL (70-100); POTASSIUM SERUM 4.9 MEQ/L (3.5-5.1); SALICYLATE LEVEL < 1.7 MG/DL (5.0-30.0); SODIUM LEVEL 140 MEQ/L (136-145); TOTAL PROTEIN 5.8 GM/DL (6.4-8.2); TROPONIN I 0.08 NG/ML (< 0.10)
[2018-03-22 11:09] LABS: CK-MB VALUE MASS 2.9 NG/ML (<3.6); MB/CK RELATIVE INDEX 1.42 (< OR =4)
[2018-03-22 11:51] LABS: OSMOLALITY SERUM 297 MOSM/KG (280-301)
[2018-03-22 12:14] LABS: KETONE, URINE AUTO RFX NEGATIVE (NEGATIVE); LEUKOCYTE ESTERASE UR AUTO RFX NEGATIVE (NEGATIVE); MUCUS, URINE RFX SMALL (NEGATIVE); NITRITE, URINE AUTO RFX NEGATIVE (NEGATIVE); RBC, URINE AUTO RFX 2 /HPF (0-3); SPECIFIC GRAVITY UR AUTO RFX 1.022 (1.002-1.035); SQUAM EPITHELIAL CELL UR AURFX 0 /HPF (0-6); WBC, URINE AUTO RFX 1 /HPF (0-3)
[2018-03-22 12:17] LABS: AMPHETAMINES LEVEL URINE NEGATIVE (NEGATIVE); BARBITURATES URINE NEGATIVE (NEGATIVE); BENZODIAZEPINES URINE NEGATIVE (NEGATIVE); CANNABINOIDS URINE NEGATIVE (NEGATIVE); COCAINE METABOLITE URINE NEGATIVE (NEGATIVE); METHADONE URINE NEGATIVE (NEGATIVE); OPIATES URINE NEGATIVE (NEGATIVE); PHENCYCLIDINE URINE NEGATIVE (NEGATIVE)
[2018-03-22] MEDS: MECLIZINE 25 MG TABLET PO (14:01)
[2018-03-22] MEDS ORDERED: BISACODYL 5 MG TAB PO (15:15)
[2018-03-22] MEDS ORDERED: GLUCOSE 4 GM CHEW TABLET PO (15:15)
[2018-03-22] MEDS ORDERED: BISACODYL 10 MG SUPP PR (15:15)
[2018-03-22] MEDS ORDERED: DEXTROSE 50% 50 ML SYRINGE IV (15:15)
[2018-03-22] MEDS ORDERED: GLUCAGON FOR INJ 1 MG VIAL (J1610) SC (15:15)
[2018-03-22] MEDS ORDERED: ONDANSETRON 4MG/2ML VIAL (J2405) IV (15:15)
[2018-03-22] MEDS ORDERED: POSACONAZOLE 100 MG PO (16:00)
[2018-03-22 16:19] LABS: DIGOXIN LEVEL 3.8 NG/ML (0.5-2.0)
[2018-03-22] MEDS ORDERED: DIGOXIN IMMUNE FAB (OVINE) 40MG VIAL (J1162) IV (16:45)
[2018-03-22] MEDS: DIGOXIN IMMUNE FAB (OVINE) 40MG VIAL (J1162) IV (18:05)
[2018-03-22 19:25] LABS: BEDSIDE GLUCOSE 147 MG/DL (83-110)
[2018-03-22] MEDS: FOLIC ACID 1 MG TAB PO (19:29)
[2018-03-22] MEDS: MONTELUKAST 10 MG TAB PO (19:29)
[2018-03-22] MEDS: HumaLOG INSULIN (NovoLOG) PER UNIT SC (19:30)
[2018-03-22] MEDS: LABETALOL 100 MG TAB PO (20:41)
[2018-03-22] MEDS: HYDROXYCHLOROQUINE 200 MG TAB PO (20:41)
[2018-03-22] MEDS: ATORVASTATIN 20 MG TAB PO (20:41)
[2018-03-22] MEDS: DUTASTERIDE 0.5 MG CAP (AVODART) PO (20:41)
[2018-03-22] MEDS: ASPIRIN 81 MG ENTERIC TAB PO (20:41)
[2018-03-22] MEDS: ACYCLOVIR 200 MG CAPSULE PO (20:41)
[2018-03-22] MEDS ORDERED: SLF 3 ML SYR IV (20:45)
[2018-03-22] MEDS: ADVAIR HFA 230/21MCG INHALER INH (21:00)
[2018-03-22] MEDS: SLF 3 ML SYR IV (22:00)
[2018-03-23] MEDS: SLF 3 ML SYR IV ×3 (06:00→21:27)
[2018-03-23 07:02] LABS: DIGOXIN LEVEL 6.7 NG/ML (0.5-2.0)
[2018-03-23 07:18] LABS: BASO % 0.3 % (0.0-1.0); EOS # 0.1 10^3/uL (0.0-0.50); EOS % 1.9 % (0.0-3.0); HEMATOCRIT 28.3 % (42.0-52.0); HEMOGLOBIN 9.7 g/dl (13.5-17.5); IMMATURE GRANULOCYTE % 0.6 % (0-3.0); LYMPH # 1.6 10^3/uL (1.5-4.5); LYMPH % 25.4 % (24.0-44.0); MEAN CORPUSCULAR HGB CONC 34.3 g/dl (32.0-36.5); MEAN CORPUSCULAR VOLUME 102.2 fl (80.0-96.0); MONO # 0.7 10^3/uL (0.0-0.8); MONO % 10.3 % (0.0-5.0); NEUTROPHILS # 3.9 10^3/uL (1.8-7.7); NEUTROPHILS % 61.5 % (36.0-66.0); PLATELET COUNT, AUTOMATED 186 10^3/uL (150-450); RED BLOOD COUNT 2.77 10^6/uL (4.30-6.10); RED CELL DISTRIBUTION WIDTH 13.2 % (11.5-14.5); WHITE BLOOD COUNT 6.3 10^3/uL (4.0-10.0)
[2018-03-23 07:26] LABS: ALBUMIN 2.9 GM/DL (3.2-5.2); ALBUMIN/GLOBULIN RATIO 1.07 (1.00-1.93); ALKALINE PHOSPHATASE 70 U/L (45-117); ALT/SGPT 41 U/L (12-78); ANION GAP 9 MEQ/L (8-16); AST/SGOT 32 U/L (7-37); BILIRUBIN,TOTAL 0.6 MG/DL (0.2-1.0); BLOOD UREA NITROGEN 22 MG/DL (7-18); CALCIUM LEVEL 8.2 MG/DL (8.8-10.2); CARBON DIOXIDE LEVEL 24 MEQ/L (21-32); CHLORIDE LEVEL 107 MEQ/L (98-107); GLOMERULAR FILTRATION RATE > 60.0 (>42); GLUCOSE, FASTING 137 MG/DL (70-100); MAGNESIUM LEVEL 1.6 MG/DL (1.8-2.4); POTASSIUM SERUM 4.5 MEQ/L (3.5-5.1); SODIUM LEVEL 140 MEQ/L (136-145); TOTAL PROTEIN 5.6 GM/DL (6.4-8.2)
[2018-03-23] MEDS: HumaLOG INSULIN (NovoLOG) PER UNIT SC ×3 (07:30→17:42)
[2018-03-23] MEDS: TIOTROPIUM INHALER/CAPSULE (SPIRIVA) INH (08:00)
[2018-03-23] MEDS: OMEPRAZOLE 20 MG CAP PO (09:00)
[2018-03-23] MEDS: ACYCLOVIR 200 MG CAPSULE PO ×2 (09:00→21:25)
[2018-03-23] MEDS ORDERED: TACROLIMUS 1 MG/ML PO ×2 (09:00→14:18)
[2018-03-23] MEDS: HYDROXYCHLOROQUINE 200 MG TAB PO ×2 (09:00→21:26)
[2018-03-23] MEDS: ADVAIR HFA 230/21MCG INHALER INH ×2 (09:00→20:55)
[2018-03-23] MEDS: LABETALOL 100 MG TAB PO ×2 (09:00→21:26)
[2018-03-23] MEDS: IMATINIB 100 MG PO ×2 (09:00→12:00)
[2018-03-23] MEDS: ENOXAPARIN 40 MG/0.4 ML SYRINGE (J1650) SC (09:00)
[2018-03-23] MEDS: TACROLIMUS 1 MG/ML PO (09:00)
[2018-03-23] MEDS: BACTRIM 160MG/800MG DS TAB PO (12:00)
[2018-03-23] MEDS: FOLIC ACID 1 MG TAB PO (12:00)
[2018-03-23] MEDS: DOXYCYCLINE HYCLATE 100 MG TAB PO (12:00)
[2018-03-23] MEDS: POSACONAZOLE 100 MG PO ×2 (12:00→21:27)
[2018-03-23 12:03] LABS: BEDSIDE GLUCOSE 179 MG/DL (83-110)
[2018-03-23 12:03] LABS: BEDSIDE GLUCOSE 152 MG/DL (83-110)
[2018-03-23] MEDS: D5W/0.45% SODIUM CHLORIDE 1,000 ML IV (12:26)
[2018-03-23] MEDS ORDERED: BUPIVACAINE HCL 0.25% 10 ML VIAL As Ordered (16:14)
[2018-03-23 17:24] LABS: CSF TUBE# GLU TUBE 2; CSF TUBE# TP TUBE 2; GLUCOSE CSF 75 MG/DL (40-75); TOTAL PROTEIN,CSF 82.4 MG/DL (15-45)
[2018-03-23] MEDS: MONTELUKAST 10 MG TAB PO (17:42)
[2018-03-23 18:09] LABS: CSF RBC < 2 10^3/uL (<2)
[2018-03-23 18:10] LABS: APPEARANCE, CSF CLEAR (CLEAR); COLOR, CSF COLORLESS (COLORLESS); CSF DIFF IF INDICATED? NO (NO); CSF TUBE# CELL CNT TUBE 1; CSF WBC 4 /uL (0-10)
[2018-03-23 18:12] LABS: APPEARANCE, CSF CLEAR (CLEAR); COLOR, CSF COLORLESS (COLORLESS); CSF DIFF IF INDICATED? NO (NO); CSF RBC < 2 10^3/uL (<2); CSF TUBE# CELL CNT TUBE 4; CSF WBC 4 /uL (0-10)
[2018-03-23 21:13] LABS: BEDSIDE GLUCOSE 126 MG/DL (83-110)
[2018-03-23 21:13] LABS: BEDSIDE GLUCOSE 137 MG/DL (83-110)
[2018-03-23] MEDS: ATORVASTATIN 20 MG TAB PO (21:25)
[2018-03-23] MEDS: ASPIRIN 81 MG ENTERIC TAB PO (21:25)
[2018-03-23] MEDS: DUTASTERIDE 0.5 MG CAP (AVODART) PO (21:26)
[2018-03-24] MEDS: D5W/0.45% SODIUM CHLORIDE 1,000 ML IV (03:40)
[2018-03-24 05:35] LABS: BASO % 0.3 % (0.0-1.0); EOS # 0.1 10^3/uL (0.0-0.50); EOS % 0.9 % (0.0-3.0); HEMOGLOBIN 9.1 g/dl (13.5-17.5); IMMATURE GRANULOCYTE % 0.6 % (0-3.0); LYMPH # 1.4 10^3/uL (1.5-4.5); LYMPH % 20.6 % (24.0-44.0); MEAN CORPUSCULAR HEMOGLOBIN 34.2 pg (27.0-33.0); MEAN CORPUSCULAR HGB CONC 33.7 g/dl (32.0-36.5); MEAN CORPUSCULAR VOLUME 101.5 fl (80.0-96.0); MONO # 0.6 10^3/uL (0.0-0.8); MONO % 8.9 % (0.0-5.0); NEUTROPHILS # 4.6 10^3/uL (1.8-7.7); NEUTROPHILS % 68.7 % (36.0-66.0); PLATELET COUNT, AUTOMATED 160 10^3/uL (150-450); RED BLOOD COUNT 2.66 10^6/uL (4.30-6.10); RED CELL DISTRIBUTION WIDTH 13.2 % (11.5-14.5); WHITE BLOOD COUNT 6.8 10^3/uL (4.0-10.0)
[2018-03-24] MEDS: SLF 3 ML SYR IV ×3 (05:46→20:50)
[2018-03-24 06:04] LABS: ALBUMIN 2.8 GM/DL (3.2-5.2); ALBUMIN/GLOBULIN RATIO 1.04 (1.00-1.93); ALKALINE PHOSPHATASE 66 U/L (45-117); ALT/SGPT 38 U/L (12-78); ANION GAP 8 MEQ/L (8-16); AST/SGOT 30 U/L (7-37); BILIRUBIN,TOTAL 0.5 MG/DL (0.2-1.0); BLOOD UREA NITROGEN 23 MG/DL (7-18); CALCIUM LEVEL 7.9 MG/DL (8.8-10.2); CARBON DIOXIDE LEVEL 24 MEQ/L (21-32); CHLORIDE LEVEL 105 MEQ/L (98-107); GLOMERULAR FILTRATION RATE > 60.0 (>42); GLUCOSE, FASTING 151 MG/DL (70-100); MAGNESIUM LEVEL 1.6 MG/DL (1.8-2.4); POTASSIUM SERUM 4.5 MEQ/L (3.5-5.1); SODIUM LEVEL 137 MEQ/L (136-145); TOTAL PROTEIN 5.5 GM/DL (6.4-8.2)
[2018-03-24 06:57] LABS: DIGOXIN LEVEL 5.8 NG/ML (0.5-2.0)
[2018-03-24] MEDS: ADVAIR HFA 230/21MCG INHALER INH ×2 (07:23→21:17)
[2018-03-24] MEDS: TIOTROPIUM INHALER/CAPSULE (SPIRIVA) INH (07:23)
[2018-03-24] MEDS: POSACONAZOLE 100 MG PO ×3 (07:53→20:50)
[2018-03-24] MEDS: ACETAMINOPHEN 500 MG TAB PO (07:54)
[2018-03-24] MEDS: HumaLOG INSULIN (NovoLOG) PER UNIT SC ×3 (07:55→17:30)
[2018-03-24] MEDS: ACYCLOVIR 200 MG CAPSULE PO ×2 (09:54→20:49)
[2018-03-24] MEDS: HYDROXYCHLOROQUINE 200 MG TAB PO ×2 (09:54→20:49)
[2018-03-24] MEDS: ENOXAPARIN 40 MG/0.4 ML SYRINGE (J1650) SC (09:54)
[2018-03-24] MEDS: OMEPRAZOLE 20 MG CAP PO (09:55)
[2018-03-24] MEDS: TACROLIMUS 1 MG/ML PO (09:55)
[2018-03-24] MEDS: LABETALOL 100 MG TAB PO ×2 (09:55→20:49)
[2018-03-24] MEDS: DOXYCYCLINE HYCLATE 100 MG TAB PO (11:54)
[2018-03-24] MEDS: FOLIC ACID 1 MG TAB PO (11:54)
[2018-03-24] MEDS: IMATINIB 100 MG PO (11:55)
[2018-03-24] MEDS: MAG SULF 1GM/100ML (MAG RUN) 1 GM in APPROPRIATE DILUENT 1 EA IV ×2 (17:29→18:33)
[2018-03-24] MEDS: MONTELUKAST 10 MG TAB PO (17:30)
[2018-03-24] MEDS: ATORVASTATIN 20 MG TAB PO (20:49)
[2018-03-24] MEDS: DUTASTERIDE 0.5 MG CAP (AVODART) PO (20:49)
[2018-03-24] MEDS: ASPIRIN 81 MG ENTERIC TAB PO (20:49)
[2018-03-24 21:00] LABS: BEDSIDE GLUCOSE 152 MG/DL (83-110)
[2018-03-24 21:00] LABS: BEDSIDE GLUCOSE 155 MG/DL (83-110)
[2018-03-25 00:06] LABS: FK 506 (TACROLIMUS) LABCORP 5.3 ng/mL (2.0-20.0)
[2018-03-25 06:01] LABS: BASO % 0.3 % (0.0-1.0); EOS # 0.1 10^3/uL (0.0-0.50); EOS % 1.8 % (0.0-3.0); HEMOGLOBIN 9.1 g/dl (13.5-17.5); IMMATURE GRANULOCYTE % 0.7 % (0-3.0); LYMPH # 1.4 10^3/uL (1.5-4.5); LYMPH % 22.7 % (24.0-44.0); MEAN CORPUSCULAR HEMOGLOBIN 34.6 pg (27.0-33.0); MEAN CORPUSCULAR HGB CONC 33.7 g/dl (32.0-36.5); MEAN CORPUSCULAR VOLUME 102.7 fl (80.0-96.0); MONO # 0.7 10^3/uL (0.0-0.8); MONO % 11.5 % (0.0-5.0); NEUTROPHILS # 3.8 10^3/uL (1.8-7.7); PLATELET COUNT, AUTOMATED 165 10^3/uL (150-450); RED BLOOD COUNT 2.63 10^6/uL (4.30-6.10); RED CELL DISTRIBUTION WIDTH 13.4 % (11.5-14.5)
[2018-03-25] MEDS: SLF 3 ML SYR IV (06:09)
[2018-03-25 06:37] LABS: ALKALINE PHOSPHATASE 68 U/L (45-117); ALT/SGPT 36 U/L (12-78); ANION GAP 9 MEQ/L (8-16); AST/SGOT 30 U/L (7-37); BILIRUBIN,TOTAL 0.5 MG/DL (0.2-1.0); BLOOD UREA NITROGEN 23 MG/DL (7-18); CARBON DIOXIDE LEVEL 23 MEQ/L (21-32); CHLORIDE LEVEL 105 MEQ/L (98-107); CREATININE FOR GFR 1.17 MG/DL (0.70-1.30); GLOMERULAR FILTRATION RATE > 60.0 (>42); GLUCOSE, FASTING 145 MG/DL (70-100); POTASSIUM SERUM 4.6 MEQ/L (3.5-5.1); SODIUM LEVEL 137 MEQ/L (136-145); TOTAL PROTEIN 5.5 GM/DL (6.4-8.2)
[2018-03-25 07:15] LABS: DIGOXIN LEVEL 4.7 NG/ML (0.5-2.0)
[2018-03-25] MEDS: LABETALOL 100 MG TAB PO (08:21)
[2018-03-25] MEDS: HYDROXYCHLOROQUINE 200 MG TAB PO (08:21)
[2018-03-25] MEDS: OMEPRAZOLE 20 MG CAP PO (08:21)
[2018-03-25] MEDS: ENOXAPARIN 40 MG/0.4 ML SYRINGE (J1650) SC (08:22)
[2018-03-25] MEDS: POSACONAZOLE 100 MG PO (08:23)
[2018-03-25] MEDS: TACROLIMUS 1 MG/ML PO (08:23)
[2018-03-25] MEDS: HumaLOG INSULIN (NovoLOG) PER UNIT SC (08:23)
[2018-03-26 10:13] LABS: TOXOPLASMA IgM ABY <3.0 AU/mL (0.0-7.9)
[2018-03-27 15:02] LABS: CAP MANDATED REFLEX TO CULTURE Not Indicated (.); CRYPTOCOCCUS ANTIGEN CSF Negative (Negative); EBV PCR QUAL CSF Negative (Negative)
== END 2018-03-25 10:02 | disposition home or self-care (01) | DRG 92 ==
LOC: M ED 09:31 → M ED INP 16:20 → M PCU 18:15
PROC: 009U3ZX Drainage of Spinal Canal, Percutaneous Approach, Diagnostic (ICD-10-PCS; principal; 2018-03-23)
DX: G92 Toxic encephalopathy (principal); D89.811 Chronic graft-versus-host disease; Z94.81 Bone marrow transplant status; I25.10 Atherosclerotic heart disease of native coronary artery without angina pectoris; I48.91 Unspecified atrial fibrillation; I10 Essential (primary) hypertension; E78.5 Hyperlipidemia, unspecified; Z95.1 Presence of aortocoronary bypass graft; Z87.891 Personal history of nicotine dependence; D46.9 Myelodysplastic syndrome, unspecified; Z79.82 Long term (current) use of aspirin; Z79.899 Other long term (current) drug therapy; Z88.4 Allergy status to anesthetic agent; T46.0X5A Adverse effect of cardiac-stimulant glycosides and drugs of similar action, initial encounter; D53.9 Nutritional anemia, unspecified; N40.0 Benign prostatic hyperplasia without lower urinary tract symptoms; Z85.828 Personal history of other malignant neoplasm of skin; R27.0 Ataxia, unspecified; R25.1 Tremor, unspecified; E83.42 Hypomagnesemia; K59.00 Constipation, unspecified; E83.51 Hypocalcemia; J45.909 Unspecified asthma, uncomplicated; K21.9 Gastro-esophageal reflux disease without esophagitis; E11.9 Type 2 diabetes mellitus without complications; Z79.84 Long term (current) use of oral hypoglycemic drugs

== ENCOUNTER 2018-04-23 01:44 | Emergency (ER) | payer MEDICARE, OTHER ==
[2018-04-23 02:46] LABS: BASO % 0.3 % (0.0-1.0); EOS # 0.1 10^3/uL (0.0-0.50); EOS % 0.7 % (0.0-3.0); HEMATOCRIT 29.3 % (42.0-52.0); HEMOGLOBIN 9.4 g/dl (13.5-17.5); IMMATURE GRANULOCYTE % 0.7 % (0-3.0); LYMPH # 0.8 10^3/uL (1.5-4.5); LYMPH % 6.1 % (24.0-44.0); MEAN CORPUSCULAR HEMOGLOBIN 34.1 pg (27.0-33.0); MEAN CORPUSCULAR HGB CONC 32.1 g/dl (32.0-36.5); MEAN CORPUSCULAR VOLUME 106.2 fl (80.0-96.0); MONO # 0.9 10^3/uL (0.0-0.8); MONO % 6.4 % (0.0-5.0); NEUTROPHILS # 11.7 10^3/uL (1.8-7.7); NEUTROPHILS % 85.8 % (36.0-66.0); PLATELET COUNT, AUTOMATED 284 10^3/uL (150-450); RED BLOOD COUNT 2.76 10^6/uL (4.30-6.10); RED CELL DISTRIBUTION WIDTH 15.9 % (11.5-14.5); WHITE BLOOD COUNT 13.6 10^3/uL (4.0-10.0)
[2018-04-23] MEDS: ONDANSETRON 4MG/2ML VIAL (J2405) IV ×2 (02:46→13:22)
[2018-04-23] MEDS: NS 1,000 ML IV ×2 (02:46→05:49)
[2018-04-23] MEDS: MORPHINE 4 MG/ML 1ML VIAL/SYRINGE (J2270) IV ×3 (02:46→13:22)
[2018-04-23 02:56] LABS: ALBUMIN 3.1 GM/DL (3.2-5.2); ALBUMIN/GLOBULIN RATIO 0.91 (1.00-1.93); ALKALINE PHOSPHATASE 82 U/L (45-117); ALT/SGPT 38 U/L (12-78); ANION GAP 6 MEQ/L (8-16); AST/SGOT 43 U/L (7-37); BILIRUBIN,DIRECT 0.1 MG/DL (0.0-0.2); BILIRUBIN,TOTAL 0.7 MG/DL (0.2-1.0); BLOOD UREA NITROGEN 46 MG/DL (7-18); CALCIUM LEVEL 8.4 MG/DL (8.8-10.2); CARBON DIOXIDE LEVEL 26 MEQ/L (21-32); CHLORIDE LEVEL 107 MEQ/L (98-107); CREATININE FOR GFR 1.57 MG/DL (0.70-1.30); GLOMERULAR FILTRATION RATE 46.1 (>42); GLUCOSE, FASTING 235 MG/DL (70-100); LIPASE 137 U/L (73-393); SODIUM LEVEL 139 MEQ/L (136-145); TOTAL PROTEIN 6.5 GM/DL (6.4-8.2)
[2018-04-23 03:09] LABS: POTASSIUM SERUM 5.9 MEQ/L (3.5-5.1)
[2018-04-23 03:30] LABS: LACTIC ACID SEPSIS PROTOCOL 1.3 MMOL/L (0.4-2.0)
[2018-04-23] MEDS ORDERED: CALCIUM CHLORIDE 10% 1 GM in D5W 100 ML IV (05:30)
[2018-04-23] MEDS: HumuLIN R (REGULAR) INSULIN (NovoLIN R) **100U/ML** PER UNIT IV (05:37)
[2018-04-23] MEDS: DEXTROSE 50% 50 ML SYRINGE IV (05:37)
[2018-04-23] MEDS: CALCIUM CHLORIDE 10% 1 GM in D5W 100 ML IV (05:49)
[2018-04-23] MEDS: PIPERACILLIN/TAZOBACTAM SOD 3.375 GM in D5W MINI-BAG PLUS 50 ML IV (05:49)
== END 2018-04-23 14:21 | disposition short-term general hospital (02) ==
LOC: M ED 01:44
DX: K81.0 Acute cholecystitis (principal); D89.810 Acute graft-versus-host disease; D46.9 Myelodysplastic syndrome, unspecified; N18.3 Chronic kidney disease, stage 3 (moderate); E87.5 Hyperkalemia; C92.A0 Acute myeloid leukemia with multilineage dysplasia, not having achieved remission; I13.0 Hypertensive heart and chronic kidney disease with heart failure and stage 1 through stage 4 chronic kidney disease, or unspecified chronic kidney disease; I25.10 Atherosclerotic heart disease of native coronary artery without angina pectoris; I50.9 Heart failure, unspecified; Z88.4 Allergy status to anesthetic agent; Z79.899 Other long term (current) drug therapy; Z79.84 Long term (current) use of oral hypoglycemic drugs; Z79.82 Long term (current) use of aspirin; Z79.2 Long term (current) use of antibiotics; Z79.51 Long term (current) use of inhaled steroids; Z94.81 Bone marrow transplant status; Z95.1 Presence of aortocoronary bypass graft; Z87.19 Personal history of other diseases of the digestive system
CPT/HCPCS: J2270

== ENCOUNTER → 2018-05-07 | Outpatient (REF) | payer MEDICARE, OTHER | LOC: M LAB REF 17:32 | DX: C44.222 Squamous cell carcinoma of skin of right ear and external auricular canal (principal); D46.9 Myelodysplastic syndrome, unspecified; H92.01 Otalgia, right ear | CPT/HCPCS: 87205 ==

== ENCOUNTER 2018-05-27 08:54 | Outpatient (RCR) | payer MEDICARE, OTHER | END 2018-05-29 | LOC: M ONCR 08:54 | DX: C49.0 Malignant neoplasm of connective and soft tissue of head, face and neck (principal) | CPT/HCPCS: 77334 ==

== ENCOUNTER 2018-06-05 11:52 | Outpatient (RCR) | payer MEDICARE, OTHER | END 2018-06-28 | LOC: M ONCR 11:52 | DX: C44.222 Squamous cell carcinoma of skin of right ear and external auricular canal (principal) | CPT/HCPCS: 77300 ==

== ENCOUNTER 2018-07-03 09:27 | Outpatient (CLI) | payer MEDICARE, OTHER ==
[2018-07-03] MEDS ORDERED: ACETAMINOPHEN TAB 650MG DOSE (2X325MG) PO (10:00)
[2018-07-03] MEDS: IMMUNE GLOBULIN 10% 10GM 100ML 10 GM in APPROPRIATE DILUENT 1 EA IV (12:27)
[2018-07-03] MEDS: IMMUNE GLOBULIN 10% 5GM 5 GM in APPROPRIATE DILUENT 1 EA IV (12:27)
[2018-07-03] MEDS: IMMUNE GLOBULIN 10% 20GM 200ML 20 GM in APPROPRIATE DILUENT 1 EA IV (12:28)
[2018-07-03] MEDS: diphenhydrAMINE INJ 50MG/ML VIAL (J1200) IV (15:12)
== END 2018-07-03 15:30 | disposition home or self-care (01) ==
LOC: M INFU 09:27
DX: D80.1 Nonfamilial hypogammaglobulinemia (principal); Z94.81 Bone marrow transplant status; Z88.8 Allergy status to other drugs, medicaments and biological substances; Z91.09 Other allergy status, other than to drugs and biological substances
CPT/HCPCS: J1200

== ENCOUNTER → 2018-07-03 | Outpatient (CLI) | payer MEDICARE, OTHER ==
[~2018-07-03] MED LIST changes: -ISOVUE-370 76% 100ML VIAL (Q9967) As Ordered; +PENTAMIDINE ISETH NEB 300 MG SOLN VIAL INH
== END ==
LOC: M CARPUL 09:30
DX: D80.1 Nonfamilial hypogammaglobulinemia (principal); Z94.81 Bone marrow transplant status; Z88.8 Allergy status to other drugs, medicaments and biological substances

== ENCOUNTER → 2018-07-29 | Outpatient (RCR) | payer MEDICARE, OTHER ==
--- NOTE | 2018-07-08 09:46 | RADONC ---
RADIATION ONCOLOGY PROGRESS NOTE: DATE: 07/06/2018 CHART NUMBER: [id number] Mr. Villegas is presently at a dose of 3200 cGy to his right ear and is tolerating treatments quite well at this point with no significant difficulties related to his radiation therapy. He continues have some bleeding of the year but overall is doing well. REVIEW OF SYSTEMS: The patient's review of systems is positive for some ear discomfort and bleeding but is otherwise noncontributory. He denies nausea, vomiting, fevers, chills, night sweats, diplopia, headaches, anxiety or depression, anorexia, weight loss, visual disturbances, chest pain, urinary or bowel difficulties, bone pain, or neurological problems. PHYSICAL EXAMINATION: The patient is here is raw with some bleeding present; it is bandaged. The remainder of his physical exam remains unchanged. Mr. Villegas is tolerating treatments quite well and radiation will continue as scheduled.
--- NOTE | 2018-07-14 08:11 | RADONC ---
RADIATION ONCOLOGY PROGRESS NOTE DATE: 07/13/2018 CHART NUMBER: [id number] Mr. Villegas is presently at a dose of 4200 cGy to his right ear and parotid region and is tolerating treatments quite well at this point with no complaints related to his radiation therapy. He is having no particularly difficult time swallowing. REVIEW OF SYSTEMS: The patient's review of systems is positive for weakness and his physical limitations. It is also positive for some diarrhea. He is basically unchanged. PHYSICAL EXAMINATION The patient's skin is showing some erythema present. His oral cavity overall is also good condition. The remainder of the physical exam remains unchanged. ASSESSMENT: The patient is tolerating treatments quite well and radiation will continue as scheduled.
--- NOTE | 2018-07-28 09:26 | RADONC ---
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 His dose thus far is 6200 cGy of an anticipated 7000 cGy and treatments are going relatively well. He has clearing of his tumor by virtue of the fact that his swelling and visible tumor has decreased substantially. REVIEW OF SYSTEMS: He denies any nausea, vomiting or pain within the irradiated area. There is some scab formation and significant decrease in the amount of swelling involving his right parotid/right ear. He has some noted skin changes with focal desquamation in the irradiated area. Alteration of taste is noted with dryness of mouth however, the patient has noted this as an ongoing issue with him even before the initiation of his radiotherapy. EXAMINATION FINDINGS: The skin within the irradiated volume as stated shows focal desquamation with a significant tumor resolution. No adenopathy is appreciated. IMPRESSION: Tolerating therapy well with a significant clinical response. PLAN: Treatments to continue.
[~2018-07-29] MED LIST changes: +/ATOR40TA PO; +ACET1TAB55 PO; +ACYC400T PO; +ADV500INH INH; +ALEN10TA PO; +AMOX500C PO; +ASPI81TA45 PO; +ATOR1TAB21 PO; +AVOD0.5C PO; +BACT800T5 PO; +BUME1TAB; +CALC-190 PO; +CALCIUM+VIT D PO; +CALCTAB68 PO; +CARV6.25; +CEFD300CAP PO; +CETI10CH PO; +CETI10TA PO; +D200CAP3 PO; +DIGO0.12 PO; +DOCU10CA PO; +DOXY-350 PO; +DOXY100C; +DUTA1CAP; +ENOX60IN3; +ERYT5OPO OU; +FISH1CAP24 PO; +FISHOIL XX; +FLAXOIL4 PO; +FOLI1TAB5 PO; +FOSA70TA PO; +GLUC500T PO; +HUMA100I5; +HYDR200T3 PO; +IMAT100T PO; +IPRAT-ALBUT; +LABE10TAB PO; +LEVO500T3 PO; +LISI5TAB PO; +METO1TAB87 PO; +METO37.5 PO; +MG-PTAB PO; +MULTTAB50 PO; +NEUR100C PO; +NOXA1TAB PO; +OMEP20CA3 PO; +PENI50TA PO; +PENT30IN INH; -PENTAMIDINE ISETH NEB 300 MG SOLN VIAL INH; +PLAQUENIL PO; +PULM0.5S INH; +SING10TA32 PO; +TACR0.5C3 PO; +TACROLIMUS PO; +TIOT18INH INH; +TRIA1CR80; +VITA10006 PO; +VITAD1000T PO; +VORI200T5 PO
== END ==
LOC: M ONCR 06-29 08:23
PROVIDERS: ATTEND Radiology Radiation Oncology
DX: C44.222 Squamous cell carcinoma of skin of right ear and external auricular canal (principal)

== ENCOUNTER 2018-07-30 08:22 | Outpatient (RCR) | payer MEDICARE, OTHER | END 2018-08-28 | LOC: M ONCR 07-31 08:20 | DX: C44.222 Squamous cell carcinoma of skin of right ear and external auricular canal (principal) | CPT/HCPCS: 77386 ==

== ENCOUNTER 2018-08-07 09:02 | Outpatient (CLI) | payer MEDICARE, OTHER ==
[2018-08-07] MEDS: ACETAMINOPHEN TAB 650MG DOSE (2X325MG) PO (09:00)
[2018-08-07] MEDS: diphenhydrAMINE INJ 50MG/ML VIAL (J1200) IV (09:00)
[2018-08-07] MEDS: IMMUNE GLOBULIN 10% 20GM 200ML 20 GM in APPROPRIATE DILUENT 1 EA IV (09:11)
[2018-08-07] MEDS: IMMUNE GLOBULIN 10% 10GM 100ML 10 GM in APPROPRIATE DILUENT 1 EA IV (09:12)
[2018-08-07] MEDS: IMMUNE GLOBULIN 10% 5GM 5 GM in APPROPRIATE DILUENT 1 EA IV (09:13)
== END 2018-08-07 13:10 | disposition home or self-care (01) ==
LOC: M INFU 09:02
DX: D80.1 Nonfamilial hypogammaglobulinemia (principal)
CPT/HCPCS: J1569

== ENCOUNTER → 2018-08-07 | Outpatient (CLI) | payer MEDICARE, OTHER ==
[~2018-08-07] MED LIST changes: -/ATOR40TA PO; -ACET1TAB55 PO; -ACYC400T PO; -ADV500INH INH; +ALBUTEROL SULFATE 2.5 MG/0.5 ML INH NEB SOLN INH; -ALEN10TA PO; -AMOX500C PO; -ASPI81TA45 PO; -ATOR1TAB21 PO; -AVOD0.5C PO; -BACT800T5 PO; -BUME1TAB; -CALC-190 PO; -CALCIUM+VIT D PO; -CALCTAB68 PO; -CARV6.25; -CEFD300CAP PO; -CETI10CH PO; -CETI10TA PO; -D200CAP3 PO; -DIGO0.12 PO; -DOCU10CA PO; -DOXY-350 PO; -DOXY100C; -DUTA1CAP; -ENOX60IN3; -ERYT5OPO OU; -FISH1CAP24 PO; -FISHOIL XX; -FLAXOIL4 PO; -FOLI1TAB5 PO; -FOSA70TA PO; -GLUC500T PO; -HUMA100I5; -HYDR200T3 PO; -IMAT100T PO; -IPRAT-ALBUT; -LABE10TAB PO; -LEVO500T3 PO; -LISI5TAB PO; -METO1TAB87 PO; -METO37.5 PO; -MG-PTAB PO; -MULTTAB50 PO; -NEUR100C PO; -NOXA1TAB PO; -OMEP20CA3 PO; -PENI50TA PO; -PENT30IN INH; +PENTAMIDINE ISETH NEB 300 MG SOLN VIAL INH; -PLAQUENIL PO; -PULM0.5S INH; -SING10TA32 PO; -TACR0.5C3 PO; -TACROLIMUS PO; -TIOT18INH INH; -TRIA1CR80; -VITA10006 PO; -VITAD1000T PO; -VORI200T5 PO
== END ==
LOC: M CARPUL 07:54
DX: D80.1 Nonfamilial hypogammaglobulinemia (principal); Z94.81 Bone marrow transplant status